=== PATIENT | female | born 1935 | race Hispanic/Latino ===

== ENCOUNTER → 2020-07-24 | Outpatient (CLI) | payer MEDICARE ==
[~2020-07-24] MED LIST: IOHEXOL-350 75 ML VIAL IV ONE
== END | disposition home or self-care (01) ==
LOC: RAH 09:02
PROVIDERS: ATTEND Internal Medicine Gastroenterology
DX: R18.8 Other ascites (principal); R10.10 Upper abdominal pain, unspecified; R14.0 Abdominal distension (gaseous); K86.9 Disease of pancreas, unspecified
CPT/HCPCS: 74170; Q9967

== ENCOUNTER 2022-08-24 12:20 | Emergency (ER) | payer OTHER, MEDICARE ==
[~2022-08-24] VITALS: Ht 162.6 cm; Wt 73.9 kg
[2022-08-24 12:57] LABS: LYMPHOCYTES % (AUTO) 27.8 % (21.0-51.0); MEAN CORPUSCULAR HEMOGLOBIN 34.3 pg (27.0-33.0); MEAN CORPUSCULAR HGB CONC 33.9 g/dL (32.0-36.0); MEAN CORPUSCULAR VOLUME 100.9 fL (79-99); MONOCYTES % (AUTO) 12.5 % (3.0-13.0); NEUTROPHILS % (AUTO) 56.3 % (40.0-77.0); PLATELET COUNT (AUTO) 97 K/uL (130-400); RED BLOOD CELL COUNT(AUTO) 3.27 MIL/uL (4.00-5.50); RED CELL DISTRIBUTION WIDTH 14.5 % (11.0-15.5)
[2022-08-24] MEDS ORDERED: HYDROXYZINE 25 MG TABLET PO ONE (13:00)
[2022-08-24] MEDS ORDERED: ALBUTEROL 0.083% 2.5 MG/3 ML INH IH ONE (13:00)
[2022-08-24 13:15] LABS: B-TYPE NATRIURETIC PEPTIDE 283 pg/mL (0-100)
[2022-08-24 13:48] LABS: CARBON DIOXIDE 27 mmol/L (21-32); CHLORIDE 96 mmol/L (101-111); CREATININE 1.5 mg/dL (0.5-1.5); GLOMERULAR FILTR. RATE CALC 34 mL/min (>90); GLUCOSE,RANDOM 189 mg/dL (70-105); POTASSIUM 3.6 mmol/L (3.5-5.1); SODIUM SERUM 133 mmol/L (136-145); UREA NITROGEN, BLOOD 18 mg/dL (7-18)
[2022-08-24 13:53] LABS: ALANINE AMINOTRANSFERASE 25 U/L (12-78); ALBUMIN 2.8 g/dL (3.5-5.0); ASPARTATE AMINOTRANSFERASE 36 U/L (10-37); TOTAL PROTEIN, SERUM 7.8 g/dL (6.0-8.3)
[2022-08-24 13:54] LABS: LIPASE < 50 U/L (114-286)
[2022-08-24 13:54] LABS: APPEARANCE,URINE CLEAR (CLEAR); BILIRUBIN,URINE NEGATIVE (NEGATIVE); COLOR,URINE YELLOW (YELLOW); GLUCOSE, URINE (UA) NEGATIVE (NEGATIVE); KETONES,URINE NEGATIVE (NEGATIVE); LEUKOCYTE ESTERASE ,URINE NEGATIVE Leu/uL (NEGATIVE); NITRATE,URINE NEGATIVE (NEGATIVE); OCCULT BLOOD,URINE NEGATIVE (NEGATIVE); PROTEIN,URINE NEGATIVE (NEGATIVE); UROBILINOGEN,URINE 0.2 mg/dL (0.2-1.0)
[2022-08-24] MEDS ORDERED: ACETAMINOPHEN WITH CODEINE 1 TAB TAB PO ONE (16:30)
[2022-08-24 18:49] VITALS: BP 126/59
[2022-08-24] MEDS ORDERED: IOHEXOL-350 75 ML VIAL IV ONE (20:32)
[2022-08-24 21:48] LABS: ABG BASE EXCESS 2.8 mmol/L (-2.0-3.0); ABG OXYGEN SATURATION 96.1 % (95.0-99.0); ABG PCO2 36 mmHg (32-45)
== END 2022-08-24 22:25 | disposition home or self-care (01) ==
LOC: EDH 12:20
DX: K74.60 Unspecified cirrhosis of liver (principal); R60.0 Localized edema; D64.9 Anemia, unspecified; Z90.49 Acquired absence of other specified parts of digestive tract
CPT/HCPCS: 36415; 36600; 70450; 71045; 73502; 73610; 80053; 81003; 82140; 82803; 83690; 83880; 84484; 85025; 85378; 93005; 93971; 94640; Q9967

== ENCOUNTER 2023-05-31 16:46 | Emergency (ER) | payer OTHER, MEDICARE ==
[~2023-05-31] VITALS: Ht 167.6 cm; Wt 86.2 kg
[~2023-05-31 16:46] MED LIST changes: +ALEN70TA80 PO; +CHOL100046 PO; +FERR325T29 PO; +FOLI1TAB85 PO; +FURO20TA4 PO; -IOHEXOL-350 75 ML VIAL IV ONE; +SODI650T PO; +SPIR25TA6 PO
[2023-05-31] MEDS: LIDOCAINE 1%-EPI 1:100,000 20 ML VIAL ONE (18:05)
[2023-05-31] MEDS: TETANUS/DIPHTHERIA TOXOID [ADULT] 0.5 ML VIAL IM ONE (18:40)
[2023-05-31] MEDS ORDERED: NAPR-1180 PO (20:25)
[2023-05-31] MEDS ORDERED: CEPH500B PO (20:25)
[2023-05-31 23:49] VITALS: BP 142/54; PULSE 70; RESP 18; O2SAT 99
== END 2023-06-01 02:01 | disposition home or self-care (01) ==
LOC: EDH 16:46
DX: S01.111A Laceration without foreign body of right eyelid and periocular area, initial encounter (principal); E03.9 Hypothyroidism, unspecified; E78.00 Pure hypercholesterolemia, unspecified; K21.9 Gastro-esophageal reflux disease without esophagitis; E11.22 Type 2 diabetes mellitus with diabetic chronic kidney disease; N18.9 Chronic kidney disease, unspecified; W18.39XA Other fall on same level, initial encounter; Y93.89 Activity, other specified; Y92.89 Other specified places as the place of occurrence of the external cause; Y99.8 Other external cause status
CPT/HCPCS: 99285; 70450; 90714; 73030; 72125; 90471; 12011; 93005; J3490